=== PATIENT | male | born 1995 | race Caucasian/White ===

== ENCOUNTER → 2017-06-09 | Outpatient (CLI) | payer BC, OTHER ==
[~2017-06-09] MED LIST: Dayquil PO
== END | disposition home or self-care (01) ==
LOC: C.RDSM 11:30
PROVIDERS: ATTEND Family Medicine Sports Medicine
DX: M54.5 Low back pain (principal)

== ENCOUNTER 2017-12-22 03:01 | Observation (INO) | payer BC ==
[~2017-12-22] VITALS: Ht 177.8 cm; Wt 82.5 kg
[2017-12-22] MEDS ORDERED: SODIUM CHLORIDE 0.9% 1000ML 1,000 ML IV STA (03:27)
[2017-12-22] MEDS ORDERED: MoRPHine SULFATE 10 MG/ML CARP/VIAL IV STA (03:27)
[2017-12-22] MEDS ORDERED: ONDANSETRON INJ 2 MG/ML 2 ML VIAL IV STA (03:27)
--- NOTE | 2017-12-22 03:33 | EMERGENCY ROOM VISIT NOTE ---
History Report prepared by Sharron: Tamara Herrera Under the Supervision of: Dr. Noé Bass M.D. First contact with patient: 03:20 Chief Complaint: ABDOMINAL PAIN Stated Complaint: ABD PAIN History of Present Illness The patient is a 22 year old male who presents to the Emergency Room with complaints of right lower quadrant abdominal pain beginning 2 hours prior to arrival. He rates his pain at an 8/10. The patient reports having nausea, testicular pain, and the chills, but denies having diarrhea, back pain, and blood in his urine. He states that movement exacerbates his pain. The patient reports heavy lifting in the last couple of days but has not noticed any injuries. The patient also denies any recent falls. The patient reports no active medical problems and no history of surgeries. Source of History: patient Onset: 2 hours prior to arrival Position: abdomen (RLQ) Symptom Intensity: rated at an 8/10 Modifying Factors (Worsening): movement Associated Symptoms: + chills, + nausea, No back pain, No diarrhea Note: additional symptom: testicular pain denies: blood in his urine Review of Systems See HPI for pertinent positives & negatives. A total of 10 systems reviewed and were otherwise negative. Past Medical & Surgical Medical Problems: (1) No Known Active Medical Problems Family History Kidney stones Social History Smoking Status: Never Smoker Housing Status: lives with roommate Occupation Status: [employer] student Current/Historical Medications No Active Prescriptions or Reported Meds Allergies Coded Allergies: No Known Allergies (Unverified , 12/22/17) Physical Exam Vital Signs Date Time Temp Pulse Resp B/P (MAP) Pulse Ox O2 Delivery O2 Flow Rate FiO2 12/22/17 05:58 95 18 134/62 95 Room Air 12/22/17 03:16 36.4 68 16 138/74 96 Room Air Physical Exam GENERAL: Patient is uncomfortable appearing and in moderate distress. HEENT: No acute trauma, normocephalic atraumatic, mucous membranes moist, no nasal congestion, no scleral icterus. NECK: No stridor, no adenopathy, no meningismus, trachea is midline. LUNGS: No dyspnea. Clear to auscultation and equal bilaterally. No wheeze, no rhonchi. HEART: Regular rate and rhythm. No murmurs, rubs, gallops appreciated. ABDOMEN: Soft, moderate right lower quadrant tenderness to palpation, bowel sounds positive, no masses appreciated, no peritonitis. BACK: No midline tenderness, no CVA tenderness EXTREMITIES: Normal motion all extremities, no cyanosis, no edema. NEUROLOGIC: Alert and oriented, no acute motor or sensory deficits, no focal weakness, cranial nerves grossly intact. SKIN: No rash, no jaundice, no diaphoresis. Medical Decision & Procedures ER Provider Diagnostic Interpretation: Radiology results and stated below per my review and [facility]. CT ABDOMEN & PELVIS With Contrast: Comparison August 11, 2015 Axial images only. Examination is limited by paucity of mesenteric fat and lack of enteric contrast. The appendix is not identified with confidence. Small amount of free fluid is suspected with body habitus limiting evaluation. Ther is diffuse distension of bowel. A discrete transition is not identified. Although small bowel distention is more prominent than gastric and colonic distention, there is some mild gastric distention and moderate distention of the colon as well. Similar distention of the small bowel as previous. Favor stasis and/or ileus over obstruction. Cannot exclude appendicitis based on this examination alone. Laboratory Results 12/22/17 03:28 Red Blood Count 4.77, Mean Corpuscular Volume 93.9, Mean Corpuscular Hemoglobin 32.5, Mean Corpuscular Hemoglobin Concent 34.6, Mean Platelet Volume 10.9, Neutrophils (%) (Auto) 65.1, Lymphocytes (%) (Auto) 22.9, Monocytes (%) (Auto) 8.4, Eosinophils (%) (Auto) 3.1, Basophils (%) (Auto) 0.2, Neutrophils # (Auto) 6.44, Lymphocytes # (Auto) 2.26, Monocytes # (Auto) 0.83, Eosinophils # (Auto) 0.31, Basophils # (Auto) 0.02 12/22/17 03:28 Test 12/22/17 03:28 12/22/17 03:34 12/22/17 04:50 White Blood Count 9.89 K/uL (4.8-10.8) Red Blood Count 4.77 M/uL (4.7-6.1) Hemoglobin 15.5 g/dL (14.0-18.0) Hematocrit 44.8 % (42-52) Mean Corpuscular Volume 93.9 fL (80-100) Mean Corpuscular Hemoglobin 32.5 pg (25-34) Mean Corpuscular Hemoglobin Concent 34.6 g/dl (32-36) Platelet Count 183 K/uL (130-400) Mean Platelet Volume 10.9 fL (7.4-10.4) Neutrophils (%) (Auto) 65.1 % Lymphocytes (%) (Auto) 22.9 % Monocytes (%) (Auto) 8.4 % Eosinophils (%) (Auto) 3.1 % Basophils (%) (Auto) 0.2 % Neutrophils # (Auto) 6.44 K/uL (1.4-6.5) Lymphocytes # (Auto) 2.26 K/uL (1.2-3.4) Monocytes # (Auto) 0.83 K/uL (0.11-0.59) Eosinophils # (Auto) 0.31 K/uL (0-0.5) Basophils # (Auto) 0.02 K/uL (0-0.2) RDW Standard Deviation 43.4 fL (36.4-46.3) RDW Coefficient of Variation 12.6 % (11.5-14.5) Immature Granulocyte % (Auto) 0.3 % Immature Granulocyte # (Auto) 0.03 K/uL (0.00-0.02) Est Creatinine Clear Calc Drug Dose 114.9 ml/min Estimated GFR () 117.0 Estimated GFR (Non- 101.0 BUN/Creatinine Ratio 31.0 (10-20) Calcium Level 9.3 mg/dl (8.5-10.1) Total Bilirubin 0.3 mg/dl (0.2-1) Direct Bilirubin < 0.1 mg/dl (0-0.2) Aspartate Amino Transf (AST/SGOT) 32 U/L (15-37) Alanine Aminotransferase (ALT/SGPT) 41 U/L (12-78) Alkaline Phosphatase 77 U/L (45-117) Total Creatine Kinase 387 U/L (39-308) Total Protein 7.8 gm/dl (6.4-8.2) Albumin 4.1 gm/dl (3.4-5.0) Lipase 155 U/L (73-393) Bedside Hemoglobin 15.3 g/dl (14.0-18.0) Bedside Hematocrit 45 % (42-52) Bedside Sodium 138 mEq/L (135-144) Bedside Potassium 4.1 mEq/L (3.3-5.0) Bedside Chloride 102 mEq/L (101-112) Bedside Total CO2 28 mEq/l (24-31) Anion Gap 14.0 mmol/L (16-25) Bedside Blood Urea Nitrogen 34 mg/dl (7-18) Bedside Creatinine 1.0 mg/dl (0.6-1.3) Bedside Glucose (other) 91 mg/dl (70-99) Bedside Ionized Calcium (Rikki) 1.21 mmol/l (1.12-1.32) Urine Color YELLOW Urine Appearance CLEAR (CLEAR) Urine pH 6.0 (4.5-7.5) Urine Specific [place] 1.030 (1.000-1.030) Urine Protein NEG (NEG) Urine Glucose (UA) NEG (NEG) Urine Ketones NEG (NEG) Urine Occult Blood NEG (NEG) Urine Nitrite NEG (NEG) Urine Bilirubin NEG (NEG) Urine Urobilinogen NEG (NEG) Urine Leukocyte Esterase NEG (NEG) Urine WBC (Auto) 0 /hpf (0-5) Urine RBC (Auto) 0-4 /hpf (0-4) Urine Hyaline Casts (Auto) 0 /lpf (0-5) Urine Epithelial Cells (Auto) 0-5 /lpf (0-5) Urine Bacteria (Auto) NEG (NEG) Laboratory results as reviewed by me. Medications Administered Medications (Trade) Dose Ordered Sig/Sheila Route Start Time Stop Time Status Last Admin Dose Admin Morphine Sulfate (MoRPHine SULFATE INJ) 6 mg NOW STAT IV 12/22/17 03:27 12/22/17 03:29 DC 12/22/17 03:38 6 MG Ondansetron HCl (Zofran Inj) 4 mg NOW STAT IV 12/22/17 03:27 12/22/17 03:29 DC 12/22/17 03:37 4 MG Sodium Chloride 1,000 ml @ 999 mls/hr Q1H1M STAT IV 12/22/17 03:27 12/22/17 04:27 DC 12/22/17 03:38 999 MLS/HR Hydromorphone HCl (Dilaudid Inj) 1 mg NOW STAT IV 12/22/17 04:29 12/22/17 04:30 DC 12/22/17 04:44 1 MG ED Course 0330: The patient was evaluated in room B11B. A complete history and physical exam was performed. 0500: I checked on the patient and he is feeling better with the pain medication. 0524: The patient feels better but is still very tender over the right lower quadrant. 0530: Discussed the patient's case with Dr. Holden. The patient will be evaluated for further treatment and disposition. 0543: I checked on the patient. We are awaiting surgeon input. 0555: Upon reevaluation, the patient is resting. Discussed results and treatment plan with the patient. He verbalized understanding and agreement with the treatment plan. The patient will be evaluated for further management by Dr. Holden. Medical Decision Differential: Appendicitis, , MSK, Diverticulitis, UTI, Renal Colic, Bowel Obstruction, Aortic Pathology, amongst other pathologies entertained. 22 yr old male arrives with rapidly worsening RLQ abdominal pain and vomiting. Quite tender over RLQ. history of similar a few years ago with dilated bowel found at that time per review of the chart. Clearly quite uncomfortable and I felt he met criteria for CT Abdo pelv given how TTP. CT without evidence appendic, though there is some free fluid. He also has this dilated bowel again which is similar to previous. I had him evaluated by Surgeon who will bring in for close monitoring. Stable and feeling better with IV pain medications. Medication Reconcilliation Current Medication List: was personally reviewed by me Blood Pressure Screening Patient's blood pressure: Normal blood pressure Consults Time Called: [phone] Consulting Physician: Dr. Holden- General Surgery Returned Call: [phone] Discussed the patient's case with Dr. Holden. The patient will be evaluated for further treatment and disposition. Impression Primary Impression: RLQ abdominal pain Scribe Attestation The scribe's documentation has been prepared under my direction and personally reviewed by me in its entirety. I confirm that the note above accurately reflects all work, treatment, procedures, and medical decision making performed by me. Departure Information Dispostion Being Evaluated By Hospitalist Prescriptions No Active Prescriptions or Reported Meds Referrals No Doctor, Assigned (PCP) Patient Instructions My [facility]
[2017-12-22 03:39] LABS: BASO % 0.2 %; BASO ABS # 0.02 K/uL (0-0.2); EOS % 3.1 %; EOS ABS # 0.31 K/uL (0-0.5); HEMATOCRIT 44.8 % (42-52); HEMOGLOBIN 15.5 g/dL (14.0-18.0); IG# 0.03 K/uL (0.00-0.02); LYMPH % 22.9 %; LYMPH ABS # 2.26 K/uL (1.2-3.4); MEAN CELL VOLUME 93.9 fL (80-100); MEAN CORPUSCULAR HEMOGLOBIN 32.5 pg (25-34); MEAN CORPUSCULAR HGB CONC 34.6 g/dl (32-36); MEAN PLATELET VOLUME 10.9 fL (7.4-10.4); MONO % 8.4 %; MONO ABS # 0.83 K/uL (0.11-0.59); NEUT % 65.1 %; NEUT ABS # 6.44 K/uL (1.4-6.5); PLATELET COUNT 183 K/uL (130-400); RED CELL DISTRIBUTION WIDTH CV 12.6 % (11.5-14.5); RED CELL DISTRIBUTION WIDTH SD 43.4 fL (36.4-46.3); WHITE BLOOD COUNT 9.89 K/uL (4.8-10.8)
[2017-12-22] MEDS ORDERED: OPTIRAY 320 IV PRN (03:45)
[2017-12-22 04:01] LABS: ISTAT IONIZED CALCIUM 1.21 mmol/l (1.12-1.32); ISTAT POTASSIUM 4.1 mEq/L (3.3-5.0)
[2017-12-22 04:04] LABS: ALBUMIN 4.1 gm/dl (3.4-5.0); ALT/SGPT 41 U/L (12-78); AST/SGOT 32 U/L (15-37); BLOOD UREA NITROGEN 33 mg/dl (7-18); CALCIUM 9.3 mg/dl (8.5-10.1); CARBON DIOXIDE 26 mmol/L (21-32); CREATININE 1.05 mg/dl (0.60-1.40); GLUCOSE 87 mg/dl (70-99); LIPASE 155 U/L (73-393); SODIUM 136 mmol/L (136-145)
[2017-12-22 04:06] LABS: ALKALINE PHOSPHATASE 77 U/L (45-117); TOTAL PROTEIN 7.8 gm/dl (6.4-8.2)
[2017-12-22] MEDS ORDERED: HYDROmorphone INJ 1 MG/ML SYR IV STA (04:29)
--- NOTE | 2017-12-22 06:02 | Surgery Consultation ---
Consultation Date of Consultation: Dec 22, 2017. Attending Physician: History of Present Illness The patient is a 22 year old male who presents to the Emergency Room with complaints of right lower quadrant abdominal pain beginning 2 hours prior to arrival. He rates his pain at an 8/10. The patient reports having nausea, testicular pain, and the chills, but denies having diarrhea, back pain, and blood in his urine. He states that movement exacerbates his pain. The patient reports heavy lifting in the last couple of days but has not noticed any injuries. The patient also denies any recent falls. The patient reports no active medical problems and no history of surgeries. I saw pt at ER, I reviewed pt's H/P with pt, pt feels better now, less RLQ pain , no diarrhea, last BM yesterday, Family History Kidney stones Social History Smoking Status: Never Smoker Smokeless Tobacco Use: No Alcohol Use: occasionally Drug Use: none Housing Status: lives with roommate Occupation Status: [employer] student Allergies Coded Allergies: No Known Allergies (Unverified , 12/22/17) Home Medications No Active Prescriptions or Reported Meds Current Inpatient Medications Current Inpatient Medications Medications (Trade) Dose Ordered Sig/Sheila Route Start Time Stop Time Status Last Admin Dose Admin Ioversol (Optiray 320) 100 ml UD PRN IV 12/22/17 03:45 12/26/17 03:44 Review of Systems Constitutional: No fever, No chills, No sweats, No weight loss, No weakness, No fatigue, No problem reported Eyes: No worsening of vision, No eye pain, No redness, No discharge, No diplopia, No problem reported ENT: No hearing loss, No unusual epistaxis, No nasal symptoms, No sore throat, No tinnitus, No dental problems, No trouble swallowing, No problem reported Respiratory: No cough, No sputum, No wheezing, No shortness of breath, No dyspnea on exertion, No dyspnea at rest, No hemoptysis, No problem reported Cardiovascular: No chest pain, No orthopnea, No PND, No edema, No claudication , No palpitations, No problem reported Abdomen: + pain, + nausea, + vomiting Musculoskeletal: No joint pain, No muscle pain, No swelling, No calf pain, No problem reported Genitourinary - Male: No hematuria, No dysuria, No urinary frequency, No urinary urgency, No urinary hesitancy, No urinary retention, No urinary incontinence, No penile discharge, No lesions, No impotence, No problem reported Neurologic: No memory loss, No paralysis, No weakness, No numbness/tingling, No vertigo, No balance problems, No problem reported Endocrine: No fatigue, No excessive thirst, No excessive urination, No problem reported Hematologic / Lymphatic: No abnormal bleeding/bruising, No clotting problems, No swollen lymph nodes, No night sweats, No problem reported Allergic / Immunologic: No environmental allergies, No seasonal allergies, No pet sensitivities, No food allergies, No hives, No frequent infections, No poor healing, No prolonged convalescence, No problem reported Physical Exam Date Time Temp Pulse Resp B/P (MAP) Pulse Ox O2 Delivery O2 Flow Rate FiO2 12/22/17 03:16 36.4 68 16 138/74 96 Room Air General Appearance: WD/WN, no apparent distress Head: normocephalic Eyes: normal inspection ENT: normal ENT inspection Neck: supple, no JVD Respiratory/Chest: chest non-tender, lungs clear, normal breath sounds Cardiovascular: regular rate, rhythm, no edema, no gallop, no JVD, no murmur Abdomen/GI: normal bowel sounds, soft, no pulsatile mass, + tenderness (at RLQ , no rebound pain) Extremities/Musculoskelatal: normal inspection, no calf tenderness, normal capillary refill Neurologic/Psych: no motor/sensory deficits, alert, normal mood/affect Skin: normal color, warm/dry, no rash Laboratory Results Last 24 Hours Test 12/22/17 03:28 12/22/17 03:34 12/22/17 04:50 White Blood Count 9.89 K/uL Red Blood Count 4.77 M/uL Hemoglobin 15.5 g/dL Hematocrit 44.8 % Mean Corpuscular Volume 93.9 fL Mean Corpuscular Hemoglobin 32.5 pg Mean Corpuscular Hemoglobin Concent 34.6 g/dl Platelet Count 183 K/uL Mean Platelet Volume 10.9 fL Neutrophils (%) (Auto) 65.1 % Lymphocytes (%) (Auto) 22.9 % Monocytes (%) (Auto) 8.4 % Eosinophils (%) (Auto) 3.1 % Basophils (%) (Auto) 0.2 % Neutrophils # (Auto) 6.44 K/uL Lymphocytes # (Auto) 2.26 K/uL Monocytes # (Auto) 0.83 K/uL Eosinophils # (Auto) 0.31 K/uL Basophils # (Auto) 0.02 K/uL RDW Standard Deviation 43.4 fL RDW Coefficient of Variation 12.6 % Immature Granulocyte % (Auto) 0.3 % Immature Granulocyte # (Auto) 0.03 K/uL Sodium Level 136 mmol/L Potassium Level 4.0 mmol/L Chloride Level 102 mmol/L Carbon Dioxide Level 26 mmol/L Anion Gap 8.0 mmol/L 14.0 mmol/L Blood Urea Nitrogen 33 mg/dl Creatinine 1.05 mg/dl Est Creatinine Clear Calc Drug Dose 114.9 ml/min Estimated GFR () 117.0 Estimated GFR (Non- 101.0 BUN/Creatinine Ratio 31.0 Random Glucose 87 mg/dl Calcium Level 9.3 mg/dl Total Bilirubin 0.3 mg/dl Direct Bilirubin < 0.1 mg/dl Aspartate Amino Transf (AST/SGOT) 32 U/L Alanine Aminotransferase (ALT/SGPT) 41 U/L Alkaline Phosphatase 77 U/L Total Creatine Kinase 387 U/L Total Protein 7.8 gm/dl Albumin 4.1 gm/dl Lipase 155 U/L Bedside Hemoglobin 15.3 g/dl Bedside Hematocrit 45 % Bedside Sodium 138 mEq/L Bedside Potassium 4.1 mEq/L Bedside Chloride 102 mEq/L Bedside Total CO2 28 mEq/l Bedside Blood Urea Nitrogen 34 mg/dl Bedside Creatinine 1.0 mg/dl Bedside Glucose (other) 91 mg/dl Bedside Ionized Calcium (Rikki) 1.21 mmol/l Urine Color YELLOW Urine Appearance CLEAR Urine pH 6.0 Urine Specific [place] 1.030 Urine Protein NEG Urine Glucose (UA) NEG Urine Ketones NEG Urine Occult Blood NEG Urine Nitrite NEG Urine Bilirubin NEG Urine Urobilinogen NEG Urine Leukocyte Esterase NEG Urine WBC (Auto) 0 /hpf Urine RBC (Auto) 0-4 /hpf Urine Hyaline Casts (Auto) 0 /lpf Urine Epithelial Cells (Auto) 0-5 /lpf Urine Bacteria (Auto) NEG Assessment & Plan CT scan- the appendix is not seen,dilate bowel, Assessment: pt is a 22 year old male who presents to Er with 5 hours history RLQ pain, some nausea and vomiting, pt denies fever, no diarrhea, IMP: abdominal pain, early acute appendicitis?, kidney stone? I recommend to admit to hospital, IV fluid, NPO, antibiotic, U/S study in am, UA. CBC, will F/U
[2017-12-22] MEDS ORDERED: ONDANSETRON INJ 2 MG/ML 2 ML VIAL IV PRN (06:15)
[2017-12-22] MEDS ORDERED: HYDROmorphone INJ 1 MG/ML SYR IV PRN (06:15)
[2017-12-22] MEDS ORDERED: MoRPHine SULFATE 2 MG/ML CARP IV PRN ×2 (06:15)
--- NOTE | 2017-12-22 06:34 | DIAGNOSTIC IMAGING REPORT ---
CT OF THE ABDOMEN AND PELVIS WITH CONTRAST CLINICAL HISTORY: Sudden onset RLQ abdominal pain, nausea, vomiting COMPARISON STUDY: CT of the abdomen and pelvis August 11, 2015. TECHNIQUE: Following IV administration of 92 mL of Optiray-320, axial images of the abdomen and pelvis were obtained from the lung bases to the proximal femurs. Images were reviewed in the axial, sagittal, and coronal planes. IV contrast was administered without complication. A dose lowering technique was utilized adhering to the principles of ALARA. CT DOSE: 414.36 mGy.cm FINDINGS: The lung bases are clear. The liver, spleen, adrenal glands and pancreas are normal. A few hypodense renal lesions are too small to characterize but likely reflect cysts. There is no hydronephrosis. Evaluation of the abdomen and pelvis is difficult given a paucity of intra-abdominal fat. There is no biliary or pancreatic ductal dilatation. No pneumatosis, free air or portal venous gas is present. There is trace fluid within the right lower quadrant. The small bowel is fluid-filled. No transition point is identified. Fecal contents are noted within small bowel consistent with stasis. This was shown on previous exam of August 19, 2015. The appendix is not identified. IMPRESSION: 1. Difficult study to interpret given paucity of intra-abdominal fat and lack of oral contrast. The appendix is not identified and therefore close clinical follow-up is recommended. 2. Mildly dilated small bowel which contains fecal contents suggestive of stasis. No transition point identified. Similar findings shown on exam of August 19, 2015. Therefore, stasis and/or ileus are favored over obstruction. 3. Small amount of free fluid. Electronically signed by: Boyd Church M.D. 12/22/2017 6:32 AM Dictated Date/Time: 12/22/2017 6:24 AM
[2017-12-22] MEDS ORDERED: IV FLUIDS COMPLETED PRN (06:45)
[2017-12-22 07:10] VITALS: BP 102/57; PULSE 78; TEMP 36.6; O2SAT 93
--- NOTE | 2017-12-22 07:13 | DIAGNOSTIC IMAGING REPORT ---
APPENDICEAL ULTRASOUND CLINICAL HISTORY: RLQ pain COMPARISON STUDY: No previous studies for comparison. FINDINGS: Ultrasonographic evaluation the right lower quadrant was performed. The appendix was not visualized. This study is therefore nondiagnostic in regards to acute appendicitis. Fluid-filled small bowel loops were evident. There is trace free fluid present. IMPRESSION: 1. Nonvisualization the appendix. The study is nondiagnostic in regards to acute appendicitis 2. Multiple fluid-filled small bowel loops. Trace free fluid. Electronically signed by: German Lyon M.D. 12/22/2017 7:11 AM Dictated Date/Time: 12/22/2017 7:10 AM
[2017-12-22] MEDS: D5W AND 1/2NSS + 20MEQ KCL 1,000 ML IV SCH ×2 (08:51→19:30)
[2017-12-22] MEDS ORDERED: CEFTRIAXONE SOD INJ 1 GM in DEXTROSE 5% ADD-VANTAGE 50ML 50 ML IV SCH (09:00)
[2017-12-22] MEDS ORDERED: CEFTRIAXONE SOD INJ 2000 MG in DEXTROSE 5% 50ML IV SCH (09:00)
[2017-12-22 10:10] LABS: BASO % 0.1 %; BASO ABS # 0.01 K/uL (0-0.2); EOS % 4.2 %; EOS ABS # 0.32 K/uL (0-0.5); HEMATOCRIT 42.7 % (42-52); HEMOGLOBIN 14.4 g/dL (14.0-18.0); IG# 0.02 K/uL (0.00-0.02); LYMPH % 26.8 %; LYMPH ABS # 2.07 K/uL (1.2-3.4); MEAN CELL VOLUME 95.5 fL (80-100); MEAN CORPUSCULAR HEMOGLOBIN 32.2 pg (25-34); MEAN CORPUSCULAR HGB CONC 33.7 g/dl (32-36); MEAN PLATELET VOLUME 10.9 fL (7.4-10.4); MONO % 7.9 %; MONO ABS # 0.61 K/uL (0.11-0.59); NEUT % 60.7 %; NEUT ABS # 4.68 K/uL (1.4-6.5); PLATELET COUNT 172 K/uL (130-400); RED CELL DISTRIBUTION WIDTH CV 12.7 % (11.5-14.5); RED CELL DISTRIBUTION WIDTH SD 44.1 fL (36.4-46.3); WHITE BLOOD COUNT 7.71 K/uL (4.8-10.8)
[2017-12-22] MEDS ORDERED: BUPIVACAINE 0.5 % 5 MG/1 ML MPF 30ML VIAL ONE (13:45)
[2017-12-22] MEDS ORDERED: BACITRACIN OINT 15 GM TUBE ONE (13:45)
[2017-12-22] MEDS ORDERED: LIDOCAINE HCL 1% 20 ML VIAL ONE (13:45)
--- NOTE | 2017-12-22 13:57 | Surgery Progress Note ---
Surgery Progress Note Date of Service Dec 22, 2017. Late Entry, saw patient at 11:00 am Subjective Post OP Day: HD # 1 still complaining of RLQ abdominal pain, rating 4/10 in severity no radiation. Slight discomfort on urinating but no blood. Able to complete stream. Lying in bed without distress. Pain with movement or any abdominal engagement. No nausea or vomiting, no fever or chills. Nurse stated mother called and said father had history of carcinoid tumor of appendix in late . Objective Vital Signs: Date Time Temp Pulse Resp B/P (MAP) Pulse Ox O2 Delivery O2 Flow Rate FiO2 12/22/17 07:10 36.6 78 18 102/57 (72) 93 Room Air 12/22/17 05:58 95 18 134/62 95 Room Air 12/22/17 03:16 36.4 68 16 138/74 96 Room Air General Appearance: WD/WN, no apparent distress Head: normocephalic, atraumatic Neck: trachea midline Respiratory/Chest: lungs clear, normal breath sounds, no respiratory distress, no accessory muscle use Cardiovascular: regular rate, rhythm, no murmur Abdomen: non distended, soft, no organomegaly, no pulsatile mass, + tenderness (RLQ on palpation with guarding, and rebound, positive McBurney's point) Laboratory Results: Results Past 24 Hours Test 12/22/17 00:00 12/22/17 03:28 12/22/17 03:34 12/22/17 04:50 Range/Units Urine Color YELLOW YELLOW Urine Appearance CLEAR CLEAR CLEAR Urine pH 6.5 6.0 4.5-7.5 Urine Specific [place] 1.026 1.030 1.000-1.030 Urine Protein NEG NEG NEG Urine Glucose (UA) NEG NEG NEG Urine Ketones NEG NEG NEG Urine Occult Blood NEG NEG NEG Urine Nitrite NEG NEG NEG Urine Bilirubin NEG NEG NEG Urine Urobilinogen NEG NEG NEG Urine Leukocyte Esterase NEG NEG NEG White Blood Count 9.89 4.8-10.8 K/uL Red Blood Count 4.77 4.7-6.1 M/uL Hemoglobin 15.5 14.0-18.0 g/dL Hematocrit 44.8 42-52 % Mean Corpuscular Volume 93.9 80-100 fL Mean Corpuscular Hemoglobin 32.5 25-34 pg Mean Corpuscular Hemoglobin Concent 34.6 32-36 g/dl Platelet Count 183 130-400 K/uL Mean Platelet Volume 10.9 7.4-10.4 fL Neutrophils (%) (Auto) 65.1 % Lymphocytes (%) (Auto) 22.9 % Monocytes (%) (Auto) 8.4 % Eosinophils (%) (Auto) 3.1 % Basophils (%) (Auto) 0.2 % Neutrophils # (Auto) 6.44 1.4-6.5 K/uL Lymphocytes # (Auto) 2.26 1.2-3.4 K/uL Monocytes # (Auto) 0.83 0.11-0.59 K/uL Eosinophils # (Auto) 0.31 0-0.5 K/uL Basophils # (Auto) 0.02 0-0.2 K/uL RDW Standard Deviation 43.4 36.4-46.3 fL RDW Coefficient of Variation 12.6 11.5-14.5 % Immature Granulocyte % (Auto) 0.3 % Immature Granulocyte # (Auto) 0.03 0.00-0.02 K/uL Sodium Level 136 136-145 mmol/L Potassium Level 4.0 3.5-5.1 mmol/L Chloride Level 102 98-107 mmol/L Carbon Dioxide Level 26 21-32 mmol/L Anion Gap 8.0 14.0 16-25 mmol/L Blood Urea Nitrogen 33 7-18 mg/dl Creatinine 1.05 0.60-1.40 mg/dl Est Creatinine Clear Calc Drug Dose 114.9 ml/min Estimated GFR () 117.0 Estimated GFR (Non- 101.0 BUN/Creatinine Ratio 31.0 10-20 Random Glucose 87 70-99 mg/dl Calcium Level 9.3 8.5-10.1 mg/dl Total Bilirubin 0.3 0.2-1 mg/dl Direct Bilirubin < 0.1 0-0.2 mg/dl Aspartate Amino Transf (AST/SGOT) 32 15-37 U/L Alanine Aminotransferase (ALT/SGPT) 41 12-78 U/L Alkaline Phosphatase 77 45-117 U/L Total Creatine Kinase 387 39-308 U/L Total Protein 7.8 6.4-8.2 gm/dl Albumin 4.1 3.4-5.0 gm/dl Lipase 155 73-393 U/L Bedside Hemoglobin 15.3 14.0-18.0 g/dl Bedside Hematocrit 45 42-52 % Bedside Sodium 138 135-144 mEq/L Bedside Potassium 4.1 3.3-5.0 mEq/L Bedside Chloride 102 101-112 mEq/L Bedside Total CO2 28 24-31 mEq/l Bedside Blood Urea Nitrogen 34 7-18 mg/dl Bedside Creatinine 1.0 0.6-1.3 mg/dl Bedside Glucose (other) 91 70-99 mg/dl Bedside Ionized Calcium (Rikki) 1.21 1.12-1.32 mmol/l Urine WBC (Auto) 0 0-5 /hpf Urine RBC (Auto) 0-4 0-4 /hpf Urine Hyaline Casts (Auto) 0 0-5 /lpf Urine Epithelial Cells (Auto) 0-5 0-5 /lpf Urine Bacteria (Auto) NEG NEG Test 12/22/17 09:57 Range/Units White Blood Count 7.71 4.8-10.8 K/uL Red Blood Count 4.47 4.7-6.1 M/uL Hemoglobin 14.4 14.0-18.0 g/dL Hematocrit 42.7 42-52 % Mean Corpuscular Volume 95.5 80-100 fL Mean Corpuscular Hemoglobin 32.2 25-34 pg Mean Corpuscular Hemoglobin Concent 33.7 32-36 g/dl Platelet Count 172 130-400 K/uL Mean Platelet Volume 10.9 7.4-10.4 fL Neutrophils (%) (Auto) 60.7 % Lymphocytes (%) (Auto) 26.8 % Monocytes (%) (Auto) 7.9 % Eosinophils (%) (Auto) 4.2 % Basophils (%) (Auto) 0.1 % Neutrophils # (Auto) 4.68 1.4-6.5 K/uL Lymphocytes # (Auto) 2.07 1.2-3.4 K/uL Monocytes # (Auto) 0.61 0.11-0.59 K/uL Eosinophils # (Auto) 0.32 0-0.5 K/uL Basophils # (Auto) 0.01 0-0.2 K/uL RDW Standard Deviation 44.1 36.4-46.3 fL RDW Coefficient of Variation 12.7 11.5-14.5 % Immature Granulocyte % (Auto) 0.3 % Immature Granulocyte # (Auto) 0.02 0.00-0.02 K/uL Diagnostic Interpretation: CT OF THE ABDOMEN AND PELVIS WITH CONTRAST CLINICAL HISTORY: Sudden onset RLQ abdominal pain, nausea, vomiting COMPARISON STUDY: CT of the abdomen and pelvis August 11, 2015. TECHNIQUE: Following IV administration of 92 mL of Optiray-320, axial images of the abdomen and pelvis were obtained from the lung bases to the proximal femurs. Images were reviewed in the axial, sagittal, and coronal planes. IV contrast was administered without complication. A dose lowering technique was utilized adhering to the principles of ALARA. CT DOSE: 414.36 mGy.cm FINDINGS: The lung bases are clear. The liver, spleen, adrenal glands and pancreas are normal. A few hypodense renal lesions are too small to characterize but likely reflect cysts. There is no hydronephrosis. Evaluation of the abdomen and pelvis is difficult given a paucity of intra-abdominal fat. There is no biliary or pancreatic ductal dilatation. No pneumatosis, free air or portal venous gas is present. There is trace fluid within the right lower quadrant. The small bowel is fluid-filled. No transition point is identified. Fecal contents are noted within small bowel consistent with stasis. This was shown on previous exam of August 19, 2015. The appendix is not identified. IMPRESSION: 1. Difficult study to interpret given paucity of intra-abdominal fat and lack of oral contrast. The appendix is not identified and therefore close clinical follow-up is recommended. 2. Mildly dilated small bowel which contains fecal contents suggestive of stasis. No transition point identified. Similar findings shown on exam of August 19, 2015. Therefore, stasis and/or ileus are favored over obstruction. 3. Small amount of free fluid. APPENDICEAL ULTRASOUND CLINICAL HISTORY: RLQ pain COMPARISON STUDY: No previous studies for comparison. FINDINGS: Ultrasonographic evaluation the right lower quadrant was performed. The appendix was not visualized. This study is therefore nondiagnostic in regards to acute appendicitis. Fluid-filled small bowel loops were evident. There is trace free fluid present. IMPRESSION: 1. Nonvisualization the appendix. The study is nondiagnostic in regards to acute appendicitis 2. Multiple fluid-filled small bowel loops. Trace free fluid. Assessment & Plan 22 year-old male with RLQ abdominal pain, afebrile, no leukocytosis. US did not visualize appendix. CT scan showing some mildly dilated small bowel and fecal stasis similar to prior CT scan in 2015. UA within normal limits. Abdominal examination with RLQ tenderness on palpation with guarding , rebound, and positive McBurney's point. Plan: Etiology of patient's RLQ abdominal pain is not clearly identified with imaging however examination is consistent with possible appendicitis. Father had history of carcinoid Tumor of the appendix in his late 20's. No issues after surgery that patient is aware of. Will repeat UA as patient was able to void Will discuss with Dr. Holden who is to see patient this afternoon and will determine need for possible laparoscopic appendectomy.
--- NOTE | 2017-12-22 14:36 | Surgery Progress Note ---
Surgery Progress Note Date of Service Dec 22, 2017. Subjective + feeling well I re-check pt, pt said he feels better, no abdominal pain now, no fever, no nausea, no vomiting, Objective Vital Signs: Date Time Temp Pulse Resp B/P (MAP) Pulse Ox O2 Delivery O2 Flow Rate FiO2 12/22/17 07:10 36.6 78 18 102/57 (72) 93 Room Air 12/22/17 05:58 95 18 134/62 95 Room Air 12/22/17 03:16 36.4 68 16 138/74 96 Room Air General Appearance: WD/WN, no apparent distress Head: normocephalic Neck: supple, no JVD Respiratory/Chest: chest non-tender, lungs clear Cardiovascular: regular rate, rhythm, no edema, no gallop Abdomen: normal bowel sounds, non tender, non distended, soft, no organomegaly Extremities: normal range of motion, non-tender, normal inspection Laboratory Results: Results Past 24 Hours Test 12/22/17 00:00 12/22/17 03:28 12/22/17 03:34 12/22/17 04:50 Range/Units Urine Color YELLOW YELLOW Urine Appearance CLEAR CLEAR CLEAR Urine pH 6.5 6.0 4.5-7.5 Urine Specific [place] 1.026 1.030 1.000-1.030 Urine Protein NEG NEG NEG Urine Glucose (UA) NEG NEG NEG Urine Ketones NEG NEG NEG Urine Occult Blood NEG NEG NEG Urine Nitrite NEG NEG NEG Urine Bilirubin NEG NEG NEG Urine Urobilinogen NEG NEG NEG Urine Leukocyte Esterase NEG NEG NEG White Blood Count 9.89 4.8-10.8 K/uL Red Blood Count 4.77 4.7-6.1 M/uL Hemoglobin 15.5 14.0-18.0 g/dL Hematocrit 44.8 42-52 % Mean Corpuscular Volume 93.9 80-100 fL Mean Corpuscular Hemoglobin 32.5 25-34 pg Mean Corpuscular Hemoglobin Concent 34.6 32-36 g/dl Platelet Count 183 130-400 K/uL Mean Platelet Volume 10.9 7.4-10.4 fL Neutrophils (%) (Auto) 65.1 % Lymphocytes (%) (Auto) 22.9 % Monocytes (%) (Auto) 8.4 % Eosinophils (%) (Auto) 3.1 % Basophils (%) (Auto) 0.2 % Neutrophils # (Auto) 6.44 1.4-6.5 K/uL Lymphocytes # (Auto) 2.26 1.2-3.4 K/uL Monocytes # (Auto) 0.83 0.11-0.59 K/uL Eosinophils # (Auto) 0.31 0-0.5 K/uL Basophils # (Auto) 0.02 0-0.2 K/uL RDW Standard Deviation 43.4 36.4-46.3 fL RDW Coefficient of Variation 12.6 11.5-14.5 % Immature Granulocyte % (Auto) 0.3 % Immature Granulocyte # (Auto) 0.03 0.00-0.02 K/uL Sodium Level 136 136-145 mmol/L Potassium Level 4.0 3.5-5.1 mmol/L Chloride Level 102 98-107 mmol/L Carbon Dioxide Level 26 21-32 mmol/L Anion Gap 8.0 14.0 16-25 mmol/L Blood Urea Nitrogen 33 7-18 mg/dl Creatinine 1.05 0.60-1.40 mg/dl Est Creatinine Clear Calc Drug Dose 114.9 ml/min Estimated GFR () 117.0 Estimated GFR (Non- 101.0 BUN/Creatinine Ratio 31.0 10-20 Random Glucose 87 70-99 mg/dl Calcium Level 9.3 8.5-10.1 mg/dl Total Bilirubin 0.3 0.2-1 mg/dl Direct Bilirubin < 0.1 0-0.2 mg/dl Aspartate Amino Transf (AST/SGOT) 32 15-37 U/L Alanine Aminotransferase (ALT/SGPT) 41 12-78 U/L Alkaline Phosphatase 77 45-117 U/L Total Creatine Kinase 387 39-308 U/L Total Protein 7.8 6.4-8.2 gm/dl Albumin 4.1 3.4-5.0 gm/dl Lipase 155 73-393 U/L Bedside Hemoglobin 15.3 14.0-18.0 g/dl Bedside Hematocrit 45 42-52 % Bedside Sodium 138 135-144 mEq/L Bedside Potassium 4.1 3.3-5.0 mEq/L Bedside Chloride 102 101-112 mEq/L Bedside Total CO2 28 24-31 mEq/l Bedside Blood Urea Nitrogen 34 7-18 mg/dl Bedside Creatinine 1.0 0.6-1.3 mg/dl Bedside Glucose (other) 91 70-99 mg/dl Bedside Ionized Calcium (Rikki) 1.21 1.12-1.32 mmol/l Urine WBC (Auto) 0 0-5 /hpf Urine RBC (Auto) 0-4 0-4 /hpf Urine Hyaline Casts (Auto) 0 0-5 /lpf Urine Epithelial Cells (Auto) 0-5 0-5 /lpf Urine Bacteria (Auto) NEG NEG Test 12/22/17 09:57 Range/Units White Blood Count 7.71 4.8-10.8 K/uL Red Blood Count 4.47 4.7-6.1 M/uL Hemoglobin 14.4 14.0-18.0 g/dL Hematocrit 42.7 42-52 % Mean Corpuscular Volume 95.5 80-100 fL Mean Corpuscular Hemoglobin 32.2 25-34 pg Mean Corpuscular Hemoglobin Concent 33.7 32-36 g/dl Platelet Count 172 130-400 K/uL Mean Platelet Volume 10.9 7.4-10.4 fL Neutrophils (%) (Auto) 60.7 % Lymphocytes (%) (Auto) 26.8 % Monocytes (%) (Auto) 7.9 % Eosinophils (%) (Auto) 4.2 % Basophils (%) (Auto) 0.1 % Neutrophils # (Auto) 4.68 1.4-6.5 K/uL Lymphocytes # (Auto) 2.07 1.2-3.4 K/uL Monocytes # (Auto) 0.61 0.11-0.59 K/uL Eosinophils # (Auto) 0.32 0-0.5 K/uL Basophils # (Auto) 0.01 0-0.2 K/uL RDW Standard Deviation 44.1 36.4-46.3 fL RDW Coefficient of Variation 12.7 11.5-14.5 % Immature Granulocyte % (Auto) 0.3 % Immature Granulocyte # (Auto) 0.02 0.00-0.02 K/uL Assessment & Plan base on all study are negative for appendicitis, D/W benefits, risks and alternatives of laparoscopic appendectomy, pt wants to wait, repeat labs in am, 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 thanks,
--- NOTE | 2017-12-22 14:54 | Discharge Instructions ---
Discharge Instructions Date of Service Dec 22, 2017. Admission Reason for Admission: Rlq Abdominal Pain Discharge Discharge Diagnosis / Problem: same Discharge Goals Goal(s): Decrease discomfort, Improve function Activity Recommendations Activity Limitations: as noted below Lifting Limitations: none Exercise/Sports Limitations: gradually increase as tolerated May Resume Sexual Activity: when tolerated Shower/Bathe: no limitations Driving or Machine Use: resume 1 day after discharge . Current Hospital Diet Patient's current hospital diet: Clear Liquid Diet Discharge Diet Recommended Diet: Regular Diet Pending Studies Studies pending at discharge: no Medical Emergencies . Who to Call and When: Medical Emergencies: If at any time you feel your situation is an emergency, please call 911 immediately. . Non-Emergent Contact Non-Emergency issues call your: Primary Care Provider Call Non-Emergent contact if: you have a fever, temperature is above 101, your pain is not controlled, your pain is worsening, your pain is unusual for you . "Provider Documentation" section prepared by Meagan Marin. .
[2017-12-22] MEDS ORDERED: BISACODYL 10 MG SUPP PR ONE (15:00)
[2017-12-22] MEDS ORDERED: NURSING VERBAL MED ORDER ONE (15:00)
[2017-12-22 15:02] VITALS: BP 108/68; PULSE 63; TEMP 36.4; O2SAT 96
[2017-12-22 18:29] VITALS: Ht 177.8 cm; Wt 82.5 kg
[2017-12-22 19:15] VITALS: O2SAT 96
[2017-12-22 23:05] VITALS: BP 107/60; PULSE 62; TEMP 36.5; O2SAT 97
[2017-12-23] MEDS: D5W AND 1/2NSS + 20MEQ KCL 1,000 ML IV SCH ×2 (04:05→12:44)
[2017-12-23 07:14] LABS: BASO % 0.3 %; BASO ABS # 0.02 K/uL (0-0.2); EOS ABS # 0.31 K/uL (0-0.5); HEMATOCRIT 46.7 % (42-52); HEMOGLOBIN 15.4 g/dL (14.0-18.0); IG# 0.02 K/uL (0.00-0.02); LYMPH % 34.2 %; LYMPH ABS # 2.13 K/uL (1.2-3.4); MEAN CELL VOLUME 97.1 fL (80-100); MEAN PLATELET VOLUME 11.2 fL (7.4-10.4); MONO % 10.6 %; MONO ABS # 0.66 K/uL (0.11-0.59); NEUT % 49.6 %; NEUT ABS # 3.08 K/uL (1.4-6.5); PLATELET COUNT 170 K/uL (130-400); RED CELL DISTRIBUTION WIDTH CV 12.8 % (11.5-14.5); RED CELL DISTRIBUTION WIDTH SD 45.8 fL (36.4-46.3); WHITE BLOOD COUNT 6.22 K/uL (4.8-10.8)
[2017-12-23 07:20] VITALS: BP 101/59; PULSE 53; TEMP 36.4; O2SAT 96
[2017-12-23 08:07] LABS: ALBUMIN 3.6 gm/dl (3.4-5.0); CALCIUM 9.1 mg/dl (8.5-10.1); CREATININE 0.99 mg/dl (0.60-1.40); POTASSIUM 3.8 mmol/L (3.5-5.1)
--- NOTE | 2017-12-23 08:11 | Surgery Progress Note ---
Surgery Progress Note Date of Service Dec 23, 2017. Subjective + feeling well, + ambulating, + bowel movement, + flatus, + pain controlled, No complaints, No nausea, No vomiting No new concerns or complaints. Feeling good, hungry. Objective Vital Signs: Date Time Temp Pulse Resp B/P (MAP) Pulse Ox O2 Delivery O2 Flow Rate FiO2 12/23/17 07:20 36.4 53 16 101/59 (73) 96 Room Air 12/22/17 23:45 Room Air 12/22/17 23:05 36.5 62 16 107/60 (76) 97 Room Air 12/22/17 19:15 96 Room Air 12/22/17 18:29 Room Air 12/22/17 15:02 36.4 63 18 108/68 (81) 96 Room Air General Appearance: WD/WN, no apparent distress Abdomen: normal bowel sounds, non tender, non distended, soft Laboratory Results: Results Past 24 Hours Test 12/22/17 09:57 12/23/17 06:20 12/23/17 06:36 Range/Units White Blood Count 7.71 6.22 4.8-10.8 K/uL Red Blood Count 4.47 4.81 4.7-6.1 M/uL Hemoglobin 14.4 15.4 14.0-18.0 g/dL Hematocrit 42.7 46.7 42-52 % Mean Corpuscular Volume 95.5 97.1 80-100 fL Mean Corpuscular Hemoglobin 32.2 32.0 25-34 pg Mean Corpuscular Hemoglobin Concent 33.7 33.0 32-36 g/dl Platelet Count 172 170 130-400 K/uL Mean Platelet Volume 10.9 11.2 7.4-10.4 fL Neutrophils (%) (Auto) 60.7 49.6 % Lymphocytes (%) (Auto) 26.8 34.2 % Monocytes (%) (Auto) 7.9 10.6 % Eosinophils (%) (Auto) 4.2 5.0 % Basophils (%) (Auto) 0.1 0.3 % Neutrophils # (Auto) 4.68 3.08 1.4-6.5 K/uL Lymphocytes # (Auto) 2.07 2.13 1.2-3.4 K/uL Monocytes # (Auto) 0.61 0.66 0.11-0.59 K/uL Eosinophils # (Auto) 0.32 0.31 0-0.5 K/uL Basophils # (Auto) 0.01 0.02 0-0.2 K/uL RDW Standard Deviation 44.1 45.8 36.4-46.3 fL RDW Coefficient of Variation 12.7 12.8 11.5-14.5 % Immature Granulocyte % (Auto) 0.3 0.3 % Immature Granulocyte # (Auto) 0.02 0.02 0.00-0.02 K/uL Urine Color YELLOW Urine Appearance CLEAR CLEAR Urine pH 7.0 4.5-7.5 Urine Specific [place] 1.013 1.000-1.030 Urine Protein NEG NEG Urine Glucose (UA) NEG NEG Urine Ketones NEG NEG Urine Occult Blood NEG NEG Urine Nitrite NEG NEG Urine Bilirubin NEG NEG Urine Urobilinogen NEG NEG Urine Leukocyte Esterase NEG NEG Sodium Level 139 136-145 mmol/L Potassium Level 3.8 3.5-5.1 mmol/L Chloride Level 103 98-107 mmol/L Carbon Dioxide Level 32 21-32 mmol/L Anion Gap 4.0 3-11 mmol/L Blood Urea Nitrogen 12 7-18 mg/dl Creatinine 0.99 0.60-1.40 mg/dl Est Creatinine Clear Calc Drug Dose 121.9 ml/min Estimated GFR () 125.7 Estimated GFR (Non- 108.4 BUN/Creatinine Ratio 12.3 10-20 Random Glucose 86 70-99 mg/dl Calcium Level 9.1 8.5-10.1 mg/dl Total Bilirubin 0.7 0.2-1 mg/dl Aspartate Amino Transf (AST/SGOT) 22 15-37 U/L Alanine Aminotransferase (ALT/SGPT) 31 12-78 U/L Alkaline Phosphatase 73 45-117 U/L Total Protein 7.0 6.4-8.2 gm/dl Albumin 3.6 3.4-5.0 gm/dl Globulin 3.4 2.5-4.0 gm/dl Albumin/Globulin Ratio 1.1 0.9-2 Assessment & Plan 12/23/17 AM labs reviewed. Vital signs stable. Doing well, abdominal pain resolved. Stating that he is hungry. Will advance to regular diet and see how he tolerates- hopefully will discharge later today.
[2017-12-23 12:21] VITALS: BP 101/59; PULSE 53; TEMP 36.4; O2SAT 96
== END 2017-12-23 13:00 | disposition home or self-care (01) ==
LOC: C.EDB 03:02 → C.MSN 06:06 → ENRESERV 06:24
PROVIDERS: ADMIT Surgery; ATTEND Surgery
DX: R10.31 Right lower quadrant pain (principal); Z80.0 Family history of malignant neoplasm of digestive organs; Z84.1 Family history of disorders of kidney and ureter